=== PATIENT | male | born 1985 | race African-American/Black ===

== ENCOUNTER 2016-12-03 10:32 | Emergency (ER) | payer SELFPAY ==
[2016-12-03] MEDS ORDERED: ASPIRIN 81 MG TABLET, CHEWABLE PO ONE (10:47)
--- NOTE | 2016-12-03 10:47 | ER Document Report ---
ED Medical Screen (RME) - General Stated Complaint: COUGH,SHORTNESS OF BREATH Time seen by provider: 10:42 Mode of Arrival: Ambulatory Information source: Patient Notes: 31-year-old smoker male complaining of pain between his scapula and his back for 2 weeks. It radiates around into the left side of his chest especially when he coughs and moves, in which he is coughing a little bit more than normal. Not feel sick in any place else. Has had his try to massage it out. No fever. Occasionally gets short of breath, and occasionally coughs up blood. I have greeted and performed a rapid initial assessment of this patient. A comprehensive ED assessment, evaluation of the patient, analysis of test results , and completion of the medical decision making process will be contacted by additional ED providers. TRAVEL OUTSIDE OF THE [place] IN LAST 30 DAYS: No - Related Data Allergies/Adverse Reactions: No Known Allergies Allergy (Verified 12/03/16 10:42) Past Medical History Past Surgical History: Reports: Hx Oral Surgery - wisdom teeth, cyst removal - Immunizations Hx Diphtheria, Pertussis, Tetanus Vaccination: Yes
--- NOTE | 2016-12-03 11:01 | EKG REPORT ---
SEVERITY:- NORMAL ECG - SINUS RHYTHM : Confirmed by: Jack Smith MD 03-Dec-2016 11:00:31
[2016-12-03 11:26] LABS: ABSOLUTE EOSINOPHILS # (AUTO) 0.1 10^3/uL (0.0-0.6); ABSOLUTE LYMPHOCYTES (AUTO) 1.2 10^3/uL (0.5-4.7); ABSOLUTE MONOCYTES (AUTO) 0.7 10^3/uL (0.1-1.4); ABSOLUTE NEUT (AUTO) 4.6 10^3/uL (1.7-8.2); BASOPHILS % (AUTO) 0.5 % (0-2); EOSINOPHILS % (AUTO) 1.3 % (0-6); HEMATOCRIT 40.7 % (37.9-51.0); HEMOGLOBIN 14.3 g/dL (13.5-17.0); HGB HCT DIFFERENCE 2.2; LYMPHOCYTES % (AUTO) 18.2 % (13-45); MEAN CORPUSCULAR HEMOGLOBIN 31.3 pg (27.0-33.4); MEAN CORPUSCULAR HGB CONC 35.1 g/dL (32.0-36.0); MEAN CORPUSCULAR VOLUME 89 fl (80-97); MONOCYTES % (AUTO) 11.1 % (3-13); RED BLOOD COUNT 4.57 10^6/uL (4.35-5.55); RED CELL DISTRIBUTION WIDTH 13.3 % (11.5-14.0); SEGMENTED NEUTROPHILS % (AUTO) 68.9 % (42-78); WHITE BLOOD COUNT 6.7 10^3/uL (4.0-10.5)
[2016-12-03 11:46] LABS: ALANINE AMINOTRANSFERASE 20 U/L (21-72); ALBUMIN 4.6 g/dL (3.5-5.0); ALKALINE PHOSPHATASE 44 U/L (38-126); ANION GAP 11 (5-19); ASPARTATE AMINO TRANSFERASE 22 U/L (17-59); BILIRUBIN,TOTAL 0.7 mg/dL (0.2-1.3); BLOOD UREA NITROGEN 13 mg/dL (7-20); CALCIUM 9.6 mg/dL (8.4-10.2); CARBON DIOXIDE 25 mmol/L (22-30); CHLORIDE 107 mmol/L (98-107); CREATINE KINASE 338 U/L (55-170); CREATININE RESULT 1.04 mg/dL (0.52-1.25); GLUCOSE 78 mg/dL (75-110); POTASSIUM 4.3 mmol/L (3.6-5.0); SODIUM 142.9 mmol/L (137-145); TOTAL PROTEIN 7.1 g/dL (6.3-8.2)
[2016-12-03 11:58] LABS: TROPONIN I < 0.012 ng/mL
--- NOTE | 2016-12-03 12:05 | ER Document Report ---
ED Neck/Back Problem - General Chief Complaint: Back Pain Stated Complaint: COUGH,SHORTNESS OF BREATH Mode of Arrival: Ambulatory Notes: Patient is a 31-year-old male, past medical history current marijuana smoker, presents with several months of dry cough and pain in his left upper back when he coughs. He says the pain is achy and improves when his massages the area. He denies current chest pain, leg swelling, sputum, fevers, nausea, vomiting, headache, numbness, tingling, saddle anesthesia, change in bowel or bladder or difficulty walking. TRAVEL OUTSIDE OF THE [place] IN LAST 30 DAYS: No - Related Data Allergies/Adverse Reactions: No Known Allergies Allergy (Verified 12/03/16 10:42) Past Medical History - General Information source: Patient - Social History Smoking Status: Current Every Day Smoker Chew tobacco use (# tins/day): No Frequency of alcohol use: None Drug Abuse: Marijuana Family History: None Patient has suicidal ideation: No Patient has homicidal ideation: No Renal/ Medical History: Denies: Hx Peritoneal Dialysis Past Surgical History: Reports: Hx Oral Surgery - wisdom teeth, cyst removal - Immunizations Hx Diphtheria, Pertussis, Tetanus Vaccination: Yes Review of Systems - Review of Systems Notes: REVIEW OF SYSTEMS: CONSTITUTIONAL: -fevers, -chills EENT: -eye pain, -difficulty swallowing, -nasal congestion CARDIOVASCULAR: +chest pain, -syncope. RESPIRATORY: +cough, -SOB GASTROINTESTINAL: -abdominal pain, - nausea, -vomiting, -diarrhea GENITOURINARY: -dysuria, -hematuria MUSCULOSKELETAL: +back pain, -neck pain SKIN: -rash or skin lesions. HEMATOLOGIC: -easy bruising or bleeding. LYMPHATIC: -swollen, enlarged glands. NEUROLOGICAL: -altered mental status or loss of consciousness, -headache, - neurologic symptoms PSYCHIATRIC: -anxiety, -depression. ALL OTHER SYSTEMS REVIEWED AND NEGATIVE. Physical Exam - Vital signs Vitals: Temp Pulse BP Pulse Ox 99.0 F 73 111/51 L 96 12/03/16 10:40 12/03/16 10:40 12/03/16 10:40 12/03/16 10:40 - Notes Notes: PHYSICAL EXAMINATION: GENERAL: Well-appearing, well-nourished and in no acute distress. HEAD: Atraumatic, normocephalic. EYES: Pupils equal round and reactive to light, extraocular movements intact, sclera anicteric, conjunctiva are normal. ENT: nares patent, oropharynx clear without exudates. Moist mucous membranes. NECK: Normal range of motion, supple without lymphadenopathy LUNGS: Breath sounds clear to auscultation bilaterally and equal. No wheezes rales or rhonchi. HEART: Regular rate and rhythm without murmurs ABDOMEN: Soft, nontender, normoactive bowel sounds. No guarding, no rebound. No masses appreciated. EXTREMITIES: Tenderness over left thoracic paraspinal muscles, palpation reproduces pain. Normal range of motion, no pitting or edema. No cyanosis. NEUROLOGICAL: Cranial nerves grossly intact. Normal speech, normal gait. Normal sensory, motor, and reflex exams. PSYCH: Normal mood, normal affect. SKIN: Warm, Dry, normal turgor, no rashes or lesions noted. Course - Re-evaluation Re-evalutation: Labs, EKG and chest x-ray do not show any concerning abnormalities. He appears well. Symptoms very atypical for ACS, PE or aortic dissection at this time. Patient's back pain is reproducible and worse with coughing. Will discharge home with anti-inflammatories and lidocaine patches to help with pain. Also provided smoking cessation for 5 minutes. Will have him follow-up with his primary care physician. - Vital Signs Vital signs: Temp Pulse Resp BP Pulse Ox 99.0 F 73 111/51 L 96 12/03/16 10:40 12/03/16 10:40 12/03/16 10:40 12/03/16 10:40 - Laboratory Result Diagrams: 12/03/16 11:10 12/03/16 11:10 Laboratory results interpreted by me: 12/03/16 11:10 ALT 20 L Creatine Kinase 338 H Discharge - Discharge Clinical Impression: Back spasm Chest pain Qualifiers: Chest pain type: unspecified Qualified Code(s): R07.9 - Chest pain, unspecified Condition: Good Disposition: HOME, SELF-CARE Additional Instructions: Use Naprosyn with food and the lidocaine patches to help with your pain. BACK PAIN: Three out of every four people will have an episode of disabling back pain during their lifetime. Most commonly the pain is due to straining of the muscles and ligaments in the low back. Usual treatment includes: (1) Rest on a firm surface. Avoid lying on your stomach. (2) Ice pack the painful area. After a few days, gentle heat may be used intermittently to relax the area, or ice packs can be continued. (3) Medication may be needed -- muscle relaxers and antiinflammatory medicines are commonly used. (4) As the back improves, exercises are prescribed to strengthen the back and abdominal muscles. Your doctor will advise you on the proper care for your back at each stage in your recovery. You may be better in a few days -- or healing may take several weeks. If new symptoms of a "herniated disc" (radiation of pain, numbness, or tingling down the back of the leg or weakness in the leg) occur, you should be re-examined. Further testing may be necessary. ICE PACKS: Apply ice packs frequently against the painful area. Many different schedules are recommended, such as "20 minutes on, 20 minutes off" or "one hour ice, two hours rest." If you need to work, you may need to go longer between ice treatments. You should plan to have the area ice packed AT LEAST one fourth of the time. The ice should be applied over the wrap, tape, or splint, or over a layer of cloth -- not directly against the skin. Some ice bags have a built-in cloth and can be put directly on the skin. WARM PACKS: After approximately two days, apply gentle heat (such as a heating pad or hot water bottle) for about 20 to 30 minutes about every two hours -- at least four times daily. Warmth and elevation will help you make a more rapid recovery , and will ease the pain considerably. Do not use HOT heat, and never apply heat for longer than 30 minutes. The continuous heat can invisibly damage skin and muscles -- even when no burn is seen on the surface. Damaged muscles can make you MORE sore. FOLLOW-UP CARE: If you have been referred to a physician for follow-up care, call the physician s office for an appointment as you were instructed or within the next two days. If you experience worsening or a significant change in your symptoms, notify the physician immediately or return to the Emergency Department at any time for re-evaluation. CHEST PAIN OF UNCLEAR CAUSE: The exact cause of your chest pain isn't clear. Fortunately, there is no evidence of a dangerous medical condition. Further testing may be required to find the source of the pain. Most often, we find that this pain is coming from the chest wall -- the muscles or rib joints in the chest. But chest pain can come from the lung and lung lining, the esophagus, the heart valves or heart lining, and even the stomach or gallbladder. Rest. Eat lightly until the pain is gone. We may prescribe medicine for pain and inflammation. You should call the physician immediately if the pain radiates to the shoulder, jaw or arms; if you start to run a fever or develop a cough; or if you develop shortness of breath, or other new or alarming symptoms. NORMAL EXAM AND WORKUP: At this time, your examination and workup show no significant abnormality. No significant abnormal physical findings were noted. All laboratory, EKG, and imaging (x-ray, CT scans, ultrasound) studies that were ordered show no significant abnormality. Although your examination and all studies that were ordered showed no significant abnormal finding, there are no examinations and no studies that are 100% accurate. There is always the possibility that some abnormality could exist and not be detected with physical examination or within the limits and capabilities of laboratory and other studies. You should return or follow up as you were instructed on your visit today for further evaluation if your symptoms do not resolve. CHEST WALL PAIN: Your chest pain may be coming from the chest wall. This is often caused by straining the muscles or joints in the chest during physical activity, direct trauma, coughing, or vigorous vomiting. Persons with arthritis are especially prone to this type of pain, due to inflammation of the cartilage joints near the breast bone. Occasionally, no cause can be found. Rest from strenuous physical activity. This kind of chest pain is usually made worse by movement of the chest. Depending on the symptoms, we may prescribe medicine for pain, muscle relaxation, and antiinflammatory effects. If the pain is new, and seems to be due to muscle strain, cold packs can help. Otherwise, apply gentle warmth to the painful area for 15 minutes every hour or two. You should call contact the doctor immediately if things change. Further evaluation is needed if you develop a fever or cough, if the nature of the pain changes, or if you become short of breath. FOLLOW-UP CARE: If you have been referred to a physician for follow-up care, call the physician s office for an appointment as you were instructed or within the next two days. If you experience worsening or a significant change in your symptoms, notify the physician immediately or return to the Emergency Department at any time for re-evaluation. Forms: Smoking Cessation Education
[2016-12-03 12:25] VITALS: BP 125/65
== END 2016-12-03 12:22 | disposition home or self-care (01) ==
LOC: ER 10:32
DX: R07.9 Chest pain, unspecified (principal); M54.9 Dorsalgia, unspecified; R25.2 Cramp and spasm; R05 Cough; R06.02 Shortness of breath; F17.210 Nicotine dependence, cigarettes, uncomplicated; F12.90 Cannabis use, unspecified, uncomplicated; M54.6 Pain in thoracic spine
CPT/HCPCS: 36415; 71020; 80053; 82550; 82553; 84484; 85025; 93005; 93010; 99284

== ENCOUNTER 2017-07-22 18:51 | Emergency (ER) | payer MEDICAID ==
[2017-07-22] MEDS ORDERED: OXYCODONE-ACETAMINOPHEN 5-325 MG TABLET PO ONE (19:23)
--- NOTE | 2017-07-22 19:25 | ER Document Report ---
HPI - HPI Patient complains to provider of: Left knee injury Onset: Last week Onset/Duration: Persistent Quality of pain: Achy Pain Level: 3 Context: States he was walking, twisted and felt a pop behind his kneecap. Patient states since then he has had persistent left knee pain that is worse when he flexes his knee. Patient denies any traumatic injury. Associated Symptoms: Other - Knee joint pain Exacerbated by: Movement, Walking Relieved by: Denies Similar symptoms previously: No Recently seen / treated by doctor: No - ROS ROS below otherwise negative: Yes Systems Reviewed and Negative: Yes All other systems reviewed and negative - MUSCULOSKELETAL Musculoskeletal: REPORTS: Extremity pain - DERM Skin Color: Normal Skin Problems: None Past Medical History - General Information source: Patient - Social History Smoking Status: Current Every Day Smoker Frequency of alcohol use: None Drug Abuse: Marijuana Occupation: marketing Lives with: Spouse/Significant other Family History: None Patient has suicidal ideation: No Patient has homicidal ideation: No - Medical History Medical History: Negative Renal/ Medical History: Denies: Hx Peritoneal Dialysis Past Surgical History: Reports: Hx Oral Surgery - wisdom teeth, cyst removal - Immunizations Hx Diphtheria, Pertussis, Tetanus Vaccination: Yes Vertical Provider Document - CONSTITUTIONAL Agree With Documented VS: Yes Exam Limitations: No Limitations General Appearance: WD/WN, No Apparent Distress - INFECTION CONTROL TRAVEL OUTSIDE OF THE [place] IN LAST 30 DAYS: No - HEENT HEENT: Atraumatic, Normocephalic - NECK Neck: Normal Inspection - RESPIRATORY Respiratory: No Respiratory Distress O2 Sat by Pulse Oximetry: 99 - CARDIOVASCULAR Pulses: Normal: Posterior tibial, Dorsalis pedis - MUSCULOSKELETAL/EXTREMETIES Musculoskeletal/Extremeties: MAEW, Tender - Left knee joint tenderness to patellar area, no obvious effusion, no laxity with varus or valgus maneuvers. Tenderness increases with flexion.. negative: Eccymosis - NEURO Level of Consciousness: Awake, Alert, Appropriate Motor/Sensory: No Motor Deficit - DERM Integumentary: Warm, Dry, No Rash Course - Vital Signs Vital signs: Temp Pulse Resp BP Pulse Ox 99.1 F 80 20 115/60 99 07/22/17 19:01 07/22/17 19:01 07/22/17 19:01 07/22/17 19:01 07/22/17 19:01 - Diagnostic Test Radiology reviewed: Image reviewed, Reports reviewed Procedures - Immobilization Left Knee Pre-Proc Neuro Vasc Exam: Normal Immobilizer type: Knee immobilizer Performed by: RN Post-Proc Neuro Vasc Exam: Normal Alignment checked and good: Yes Discharge - Discharge Clinical Impression: Knee sprain Qualifiers: Encounter type: initial encounter Involved ligament of knee: unspecified ligament Laterality: left Qualified Code(s): S83.92XA - Sprain of unspecified site of left knee, initial encounter Condition: Stable Disposition: HOME, SELF-CARE Instructions: Use of Crutches ([facility]), Ice & Elevation ([facility]), Knee Immobilizing Splint ([facility]), Oral Narcotic Medication ([facility]), Sprained Knee ([facility]) Additional Instructions: Return immediately for any new or worsening symptoms Followup with your primary care provider, call tomorrow to make a followup appointment Follow-up with orthopedic doctor for further evaluation, call tomorrow for an appointment Prescriptions: Acetaminophen with Codeine [Acetaminophen-Cod #3 Tablet] 1 each PO Q6 PRN #12 tablet PRN Reason: Forms: Return to Work Referrals: [facility] ([place]) [Provider Group] - Follow up in 3-5 days
--- NOTE | 2017-07-22 20:26 | RADIOLOGY REPORT (SQ) ---
EXAM DESCRIPTION: KNEE LEFT 4 VIEW COMPLETED DATE/TIME: 07/22/2017 8:13 pm REASON FOR STUDY: pain under patella, felt pop COMPARISON: None. NUMBER OF VIEWS: Four views. TECHNIQUE: AP, lateral, and both oblique radiographic images acquired of the left knee. LIMITATIONS: None. FINDINGS: MINERALIZATION: Normal. BONES: No acute fracture or dislocation. No worrisome bone lesions. JOINT: No effusion. SOFT TISSUES: No soft tissue swelling. No radio-opaque foreign body. OTHER: No other significant finding. IMPRESSION: NO RADIOGRAPHIC EVIDENCE OF ACUTE INJURY. TECHNICAL DOCUMENTATION: JOB ID: [id number] [employer]- All Rights Reserved
[2017-07-22 20:47] VITALS: BP 118/64
== END 2017-07-22 20:46 | disposition home or self-care (01) ==
LOC: ER 18:51
DX: S83.92XA Sprain of unspecified site of left knee, initial encounter (principal); X50.0XXA Overexertion from strenuous movement or load, initial encounter; F17.200 Nicotine dependence, unspecified, uncomplicated
CPT/HCPCS: 99283; 73562; L1830

== ENCOUNTER 2017-12-09 10:06 | Emergency (ER) | payer MEDICAID, OTHER ==
[2017-12-09 10:12] VITALS: BP 115/62
[2017-12-09] MEDS ORDERED: IBUPROFEN 800 MG TABLET PO ONE (10:33)
--- NOTE | 2017-12-09 10:34 | ER Document Report ---
HPI - HPI Patient complains to provider of: wrist pain Onset: Last week Onset/Duration: Persistent Quality of pain: Achy Pain Level: 4 Context: Patient states that he was using a sledgehammer 1 week ago with his arm extended and felt a pop in his right wrist. Patient states since then he has had pain with movement of his right wrist. Associated Symptoms: Other - r wrist pain Exacerbated by: Movement Relieved by: Denies Similar symptoms previously: Yes Recently seen / treated by doctor: No - ROS ROS below otherwise negative: Yes Systems Reviewed and Negative: Yes All other systems reviewed and negative - CONSTITUTIONAL Constitutional: DENIES: Fever - NEURO Neurology: DENIES: Weakness - MUSCULOSKELETAL Musculoskeletal: REPORTS: Extremity pain. DENIES: Swelling - DERM Skin Color: Normal Skin Problems: None Past Medical History - General Information source: Patient - Social History Smoking Status: Never Smoker Frequency of alcohol use: None Drug Abuse: Marijuana Occupation: Demolition Family History: None Renal/ Medical History: Denies: Hx Peritoneal Dialysis Musculoskeltal Medical History: Reports Other - Carpal tunnel Past Surgical History: Reports: Hx Oral Surgery - wisdom teeth, cyst removal - Immunizations Hx Diphtheria, Pertussis, Tetanus Vaccination: Yes Vertical Provider Document - CONSTITUTIONAL Agree With Documented VS: Yes Exam Limitations: No Limitations General Appearance: WD/WN, No Apparent Distress - INFECTION CONTROL TRAVEL OUTSIDE OF THE [place] IN LAST 30 DAYS: No - HEENT HEENT: Atraumatic, Normocephalic - NECK Neck: Normal Inspection - RESPIRATORY Respiratory: No Respiratory Distress O2 Sat by Pulse Oximetry: 97 - CARDIOVASCULAR Pulses: Normal: Radial - MUSCULOSKELETAL/EXTREMETIES Musculoskeletal/Extremeties: MAEW, FROM, Tender - Right wrist tenderness over radial aspect of distal forearm, no edema, no deformity. Tenderness increases with ulnar deviation of right wrist, No Edema - NEURO Level of Consciousness: Awake, Alert, Appropriate Motor/Sensory: No Motor Deficit - DERM Integumentary: Warm, Dry, No Rash Course - Re-evaluation Re-evalutation: 12/09/17 Patient has his own cock-up splint with him. Splint in place with proper alignment, patient neurovascularly intact - Vital Signs Vital signs: Temp Pulse Resp BP Pulse Ox 98.6 F 68 14 115/62 97 12/09/17 10:11 12/09/17 10:11 12/09/17 10:11 12/09/17 10:11 12/09/17 10:11 - Diagnostic Test Radiology reviewed: Reports reviewed Discharge - Discharge Clinical Impression: Right wrist pain, Tendonitis Condition: Stable Disposition: HOME, SELF-CARE Instructions: Anti-Inflammatory Medication ([facility]), Oral Narcotic Medication ([facility] ), Tendonitis ([facility]) Additional Instructions: Return immediately for any new or worsening symptoms Followup with your primary care provider, call tomorrow to make a followup appointment Follow-up with orthopedic doctor for any continued pain or problems Limit repetitive activities using your right wrist Prescriptions: Hydrocodone/Acetaminophen [[place] 5-325 Tablet] 1 each PO Q4 PRN #12 tablet PRN Reason: Naproxen [Naprosyn 250 Nmg Tablet] 1 tab PO BID #14 tablet Forms: Return to Work Referrals: [facility] ([place]) [Provider Group] - Follow up tomorrow
--- NOTE | 2017-12-09 11:19 | RADIOLOGY REPORT (SQ) ---
EXAM DESCRIPTION: WRIST RIGHT 3 VIEWS COMPLETED DATE/TIME: 12/09/2017 11:08 am REASON FOR STUDY: r wrist/popping sensation COMPARISON: None. NUMBER OF VIEWS: Three views. TECHNIQUE: AP, lateral, and oblique radiographic images acquired of the right wrist. LIMITATIONS: None. FINDINGS: MINERALIZATION: Normal. BONES: No acute fracture or dislocation. No worrisome bone lesions. Normal alignment. SOFT TISSUES: No soft tissue swelling. No foreign body. OTHER: No other significant finding. IMPRESSION: NEGATIVE STUDY OF THE RIGHT WRIST. NO RADIOGRAPHIC EVIDENCE OF ACUTE INJURY. TECHNICAL DOCUMENTATION: JOB ID: [id number] [employer]- All Rights Reserved
== END 2017-12-09 11:55 | disposition home or self-care (01) ==
LOC: ER 10:06
DX: M25.531 Pain in right wrist (principal); M77.9 Enthesopathy, unspecified; X58.XXXA Exposure to other specified factors, initial encounter; Y93.89 Activity, other specified; Y99.0 Civilian activity done for income or pay
CPT/HCPCS: 99283

== ENCOUNTER 2019-04-11 10:51 | Emergency (ER) | payer OTHER, MEDICAID ==
[2019-04-11] MEDS ORDERED: NORMAL SALINE 1000 ML 1,000 ML IV ONE (11:12)
--- NOTE | 2019-04-11 11:13 | ER Document Report ---
ED Medical Screen (RME) - General Chief Complaint: Abdominal Cramping Stated Complaint: WEAKNESS Time Seen by Provider: 04/11/19 11:12 Mode of Arrival: Ambulatory Information source: Patient Notes: Patient presents with a concern about heat exhaustion. Patient states that he was working out in the heat yesterday and thought he had hydrated well enough although he was continually sweating. Patient states he started to have muscle cramps yesterday that have persisted today. Patient does feel lightheaded and occasionally see spots. Patient reports nausea but denies any vomiting. Patien t hypotensive in triage I have greeted and performed a rapid initial assessment of this patient. A comprehensive ED assessment and evaluation of the patient, analysis of test results and completion of the medical decision making process will be conducted by additional ED providers. TRAVEL OUTSIDE OF THE [place] IN LAST 30 DAYS: No - Related Data Allergies/Adverse Reactions: No Known Allergies Allergy (Verified 12/09/17 10:07) Past Medical History Renal/ Medical History: Denies: Hx Peritoneal Dialysis Past Surgical History: Reports: Hx Oral Surgery - wisdom teeth, cyst removal - Immunizations Hx Diphtheria, Pertussis, Tetanus Vaccination: Yes Physical Exam - Vital signs Vitals: Temp Pulse Resp BP Pulse Ox 98 F 64 18 81/55 L 96 04/11/19 10:56 04/11/19 10:56 04/11/19 10:56 04/11/19 10:56 04/11/19 10:56 - Cardiovascular Rhythm: Regular Heart sounds: S1 appreciated, S2 appreciated Course - Vital Signs Vital signs: Temp Pulse Resp BP Pulse Ox 98 F 64 18 81/55 L 96 04/11/19 10:56 04/11/19 10:56 04/11/19 10:56 04/11/19 10:56 04/11/19 10:56
[2019-04-11] MEDS ORDERED: RINGERS SOLUTION,LACTATED 1,000 ML IV ONE (12:05)
--- NOTE | 2019-04-11 12:10 | ER Document Report ---
ED General - General Chief Complaint: Abdominal Cramping Stated Complaint: WEAKNESS Time Seen by Provider: 04/11/19 11:12 Mode of Arrival: Ambulatory Notes: 33-year-old male presents with muscle cramping mostly his thighs and behind his thighs intermittent for the last 24 hours. Associated with some dehydration symptoms like fatigue and dizziness. He was out working in the sun yesterday says that his whole body "locked up on him." He got slightly better last night with Pedialyte and bananas could but continues to have some symptoms. Positive decreased urine output. Denies fever. Marijuana user but no other drugs or alcohol. Hypotensive at triage. TRAVEL OUTSIDE OF THE [place] IN LAST 30 DAYS: No - Related Data Allergies/Adverse Reactions: No Known Allergies Allergy (Verified 12/09/17 10:07) Past Medical History - General Information source: Patient - Social History Smoking Status: Never Smoker Drug Abuse: Marijuana Family History: None Renal/ Medical History: Denies: Hx Peritoneal Dialysis Past Surgical History: Reports: Hx Oral Surgery - wisdom teeth, cyst removal - Immunizations Hx Diphtheria, Pertussis, Tetanus Vaccination: Yes Review of Systems - Review of Systems Notes: REVIEW OF SYSTEMS GEN: Fatigue ENT: Denies sore throat, nasal discharge, ear pain EYES: Denies blurry vision, eye pain, discharge CV: Denies chest pain, palpitations, edema RESP: Denies cough, shortness of breath, wheezing GI: Denies abdominal pain, nausea, vomiting, diarrhea MSK: Muscle cramps SKIN: Denies rash, skin lesions LYMPH: Denies swollen glands/lymph nodes NEURO: Denies headache, focal weakness or numbness, dizziness PSYCH: Denies depression, suicidal or homicidal ideation PHYSICAL EXAMINATION General: No acute distress, well-nourished Head: Atraumatic, normocephalic ENT: Mouth normal, oropharynx moist, no exudates or tonsillar enlargement Eyes: Conjunctiva normal, pupils equal, lids normal Neck: No JVD, supple, no guarding CVS: Normal rate, regular rhythm, no murmurs Resp: No resp distress, equal and normal breath sounds bilaterally GI: Nondistended, soft, no tenderness to palpation, no rebound or guarding Ext: No deformities, no edema, normal range of motion in upper and lower ext. Compartments all soft with no muscle tenderness apparent. Back: No CVA or midline TTP Skin: No rash, warm Lymphatic: No lymphadeopathy noted Neuro: Awake, alert. Face symmetric. GCS 15. Physical Exam - Vital signs Vitals: Temp Pulse Resp BP Pulse Ox 98 F 64 18 81/55 L 96 04/11/19 10:56 04/11/19 10:56 04/11/19 10:56 04/11/19 10:56 04/11/19 10:56 Course - Re-evaluation Re-evalutation: 04/11/19 12:09 Patient presents with clinical dehydration plus or minus Avtar abnormalities. Will check for red myolysis although clinically not present. No evidence of compartment syndrome, no ongoing vomiting. Patient actually ate [employer] prior to coming to the emergency department. Nonetheless he is dehydrated and hypotensive. He was given a liter of normal saline which caused his pressure to increase from the 80s to the 110 range. Will order second liter empirically and wait for labs. - Vital Signs Vital signs: Temp Pulse Resp BP Pulse Ox 98 F 64 18 81/55 L 100 04/11/19 10:56 04/11/19 10:56 04/11/19 10:56 04/11/19 10:56 04/11/19 12:10 - Laboratory Result Diagrams: 04/11/19 11:54 04/11/19 11:54 Laboratory results interpreted by me: 04/11/19 11:54 BUN 31 H Creatinine 2.18 H Est GFR ( Amer) 42 L Est GFR (Non-Af Amer) 35 L Magnesium 2.5 H Creatine Kinase 1063 H Total Protein 8.6 H Albumin 5.3 H Critical Care Note - Critical Care Note Total time excluding time spent on procedures (mins): 31 Comments: The above patient is critically ill. Not including procedures, but including direct re-evaluations, speaking with patient and/or consultants, interpreting results, and documenting, I spent the total amount of minute listed listed above on critical care time Discharge - Discharge Clinical Impression: Dehydration, Acute kidney injury Condition: Good Disposition: HOME, SELF-CARE Additional Instructions: Please drink plenty of fluids any normal diet. Please avoid heat. If your urine output decreases or you feel generally unwell please return here for a recheck of your kidney function. It was slightly declined given your de hydration, we were a week we are able to give you fluids and you able to take oral hydration see her discharge home. Referrals: [facility] [Outside] - Follow up in 1 week
[2019-04-11 12:15] LABS: ABSOLUTE BASOPHILS # (AUTO) 0.1 10^3/uL (0.0-0.2); ABSOLUTE EOSINOPHILS # (AUTO) 0.1 10^3/uL (0.0-0.6); ABSOLUTE LYMPHOCYTES (AUTO) 2.6 10^3/uL (0.5-4.7); ABSOLUTE MONOCYTES (AUTO) 1.1 10^3/uL (0.1-1.4); ABSOLUTE NEUT (AUTO) 5.3 10^3/uL (1.7-8.2); BASOPHILS % (AUTO) 0.7 % (0-2); EOSINOPHILS % (AUTO) 1.3 % (0-6); HEMATOCRIT 46.8 % (37.9-51.0); HEMOGLOBIN 16.3 g/dL (13.5-17.0); LYMPHOCYTES % (AUTO) 28.1 % (13-45); MEAN CORPUSCULAR HEMOGLOBIN 31.2 pg (27.0-33.4); MEAN CORPUSCULAR HGB CONC 34.8 g/dL (32.0-36.0); MEAN CORPUSCULAR VOLUME 89 fl (80-97); MONOCYTES % (AUTO) 11.7 % (3-13); PLATELET COUNT 202 10^3/uL (150-450); RED BLOOD COUNT 5.23 10^6/uL (4.35-5.55); RED CELL DISTRIBUTION WIDTH 13.8 % (11.5-14.0); SEGMENTED NEUTROPHILS % (AUTO) 58.2 % (42-78); TOTAL CELLS COUNTED % (AUTO) 100 %; WHITE BLOOD COUNT 9.2 10^3/uL (4.0-10.5)
[2019-04-11 12:30] LABS: ALANINE AMINOTRANSFERASE 34 U/L (21-72); ALBUMIN 5.3 g/dL (3.5-5.0); ALKALINE PHOSPHATASE 45 U/L (38-126); ANION GAP 13 (5-19); ASPARTATE AMINO TRANSFERASE 44 U/L (17-59); BILIRUBIN,DIRECT 0.3 mg/dL (0.0-0.4); BILIRUBIN,TOTAL 0.7 mg/dL (0.2-1.3); BLOOD UREA NITROGEN 31 mg/dL (7-20); CALCIUM 10.1 mg/dL (8.4-10.2); CARBON DIOXIDE 25 mmol/L (22-30); CHLORIDE 99 mmol/L (98-107); CREATINE KINASE 1063 U/L (55-170); GLUCOSE 89 mg/dL (75-110); POTASSIUM 4.6 mmol/L (3.6-5.0); SODIUM 137.2 mmol/L (137-145); TOTAL PROTEIN 8.6 g/dL (6.3-8.2)
[2019-04-11 14:21] VITALS: BP 116/77
== END 2019-04-11 14:28 | disposition home or self-care (01) ==
LOC: ER 10:51
DX: E86.0 Dehydration (principal); N17.9 Acute kidney failure, unspecified; M62.82 Rhabdomyolysis; I95.9 Hypotension, unspecified; R42 Dizziness and giddiness; R53.83 Other fatigue; F12.10 Cannabis abuse, uncomplicated
CPT/HCPCS: 99285; 96360; 36415; 82550; 83735; 85025; 80053; J7030; J7120

== ENCOUNTER 2019-09-05 16:23 | Emergency (ER) | payer MEDICAID ==
[2019-09-05 16:28] VITALS: BP 122/66
[2019-09-05] MEDS ORDERED: DEXAMETHASONE SOD PHOS INJ 10 MG/1 ML VIAL IM ONE (17:48)
[2019-09-05] MEDS ORDERED: KETOROLAC TROMETHAMINE INJ/PF 30 MG/1 ML SDV IM ONE (17:48)
[2019-09-05] MEDS ORDERED: ACETAMINOPHEN 325 MG TABLET PO ONE (17:49)
--- NOTE | 2019-09-05 17:56 | ER Document Report ---
HPI - HPI Time Seen by Provider: 09/05/19 17:27 Pain Level: 5 Context: Healthy 34-year-old male presents the emergency department with chief complaint of headache and left-sided neck pain. Patient states is been going on for about a week but got worse last 2 days. Patient states that it is worse with stress. Patient says that he can "crack" his neck and it will temporarily relieve the pain. Patient says he does not try to take any for. Patient denies any acute confusion, facial droop, limb weakness, vision changes, acute shortness of breath or chest pain, nausea or vomiting, no other complaints. She is concerned because he recently had a friend of an aneurysm couple months ago - NEURO Neurology: REPORTS: Headache Past Medical History - Social History Smoking Status: Current Some Day Smoker Frequency of alcohol use: None Drug Abuse: Marijuana Family History: None Patient has suicidal ideation: No Patient has homicidal ideation: No Renal/ Medical History: Denies: Hx Peritoneal Dialysis Past Surgical History: Reports: Hx Oral Surgery - wisdom teeth, cyst removal - Immunizations Hx Diphtheria, Pertussis, Tetanus Vaccination: Yes Vertical Provider Document - CONSTITUTIONAL Notes: PHYSICAL EXAMINATION: Reviewed vital signs and charting by RN GENERAL: Alert, interacts well. No acute distress. HEAD: Normocephalic, atraumatic. EYES: Pupils equal and round. Extraocular movements intact. ENT: Oral mucosa moist, tongue midline. NECK: Full range of motion. Trachea midline. LUNGS: Clear to auscultation bilaterally, no wheezes, rales, or rhonchi. No respiratory distress. HEART: Regular rate and rhythm. No murmur ABDOMEN: soft, non-tender. No distention. Bowel sounds present EXTREMITIES: Moves all 4 extremities spontaneously. No edema, No cyanosis. 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 SKIN: Warm, dry, normal turgor. No rashes or lesions noted. - INFECTION CONTROL TRAVEL OUTSIDE OF THE [place] IN LAST 30 DAYS: No Course - Re-evaluation Re-evalutation: 09/05/19 17:55 Well-appearing no acute distress. Based on normal neurologic testing and patient's history I have very low suspicion for a concerning etiology like subarachnoid hemorrhage or any other intracranial pathology, low concern for CVA, low concern for meningitis as patient's neck is supple and he has good range of motion, and I suspect it is a cervical muscle strain. Discussed findings with patient, will medicate him, he has good follow-up, and is stable for discharge. - Vital Signs Vital signs: Temp Pulse Resp BP Pulse Ox 98.3 F 72 18 122/66 100 09/05/19 16:28 09/05/19 16:28 09/05/19 16:28 09/05/19 16:28 09/05/19 16:28 Discharge - Discharge Clinical Impression: Cervical muscle strain Qualifiers: Encounter type: initial encounter Qualified Code(s): S16.1XXA - Strain of muscle, fascia and tendon at neck level, initial encounter Condition: Good Disposition: HOME, SELF-CARE Additional Instructions: You were seen in the emergency department this afternoon for a cervical neck strain. Based on our discussion, your physical exam, and your history I am very reassured that it the pain in your head is originating from your neck and it is muscular in nature. Like I said I cannot tell you 100% that there is not an aneurysm in your brain, but because you do not have a family history and you have a completely normal neurologic exam I am very reassured and I do not feel would be appropriate to do a CT scan of your head. You have received a steroid shot and another shot called Toradol here in the emergency department, you have been given some Tylenol, and I gave you a prescription for Flexeril which you can get filled at the pharmacy. Also, get a heating pad with a run out and towel seeking apply moist heat to the area and do gentle stretching. Please follow-up with Dr. Leiva next week if your symptoms do not improve over the weekend. Please return to the emergency department if you develop those acute strokelike symptoms that you are describing to me to include one-sided weakness, slurred speech, facial droop, vision loss, acute confusion, or you have any other concerning symptoms. Prescriptions: Cyclobenzaprine HCl [Flexeril 5 mg Tablet] 1 - 2 tab PO TID PRN #15 tablet PRN Reason: Referrals: YAKOV LEIVA DO [Primary Care Provider] - Follow up as needed
== END 2019-09-05 18:20 | disposition home or self-care (01) ==
LOC: ER 16:23
DX: S16.1XXA Strain of muscle, fascia and tendon at neck level, initial encounter (principal); X58.XXXA Exposure to other specified factors, initial encounter; R51 Headache; M54.2 Cervicalgia; F17.200 Nicotine dependence, unspecified, uncomplicated; F12.10 Cannabis abuse, uncomplicated
CPT/HCPCS: J3490; J1885; J1100; 96372; 99283

== ENCOUNTER 2019-09-30 08:31 | Day surgery (SDC) | payer MEDICAID ==
[~2019-09-30 08:31] MED LIST: CEFAZOLIN SODIUM 2 GM in DEXTROSE 5%-WATER 100 ML IV PRN; FENTANYL CITRATE INJ/PF 100 MCG/2 ML AMPUL ONE; MIDAZOLAM 2 MG/2 ML INJ ONE; ONDANSETRON HCL INJ/PF 4 MG/2 ML SDV ONE; PROPOFOL INJ 200 MG/20 ML VIAL IV ONE
[2019-09-30 09:55] LABS: HEMATOCRIT 44.4 % (37.9-51.0); HEMOGLOBIN 15.4 g/dL (13.5-17.0); MEAN CORPUSCULAR HEMOGLOBIN 32.1 pg (27.0-33.4); MEAN CORPUSCULAR HGB CONC 34.7 g/dL (32.0-36.0); MEAN CORPUSCULAR VOLUME 92 fl (80-97); PLATELET COUNT 162 10^3/uL (150-450); RED CELL DISTRIBUTION WIDTH 13.8 % (11.5-14.0); WHITE BLOOD COUNT 6.4 10^3/uL (4.0-10.5)
[2019-09-30 09:59] LABS: ANION GAP 12 (5-19); BLOOD UREA NITROGEN 10 mg/dL (7-20); CARBON DIOXIDE 25 mmol/L (22-30); CHLORIDE 106 mmol/L (98-107); GLUCOSE 90 mg/dL (75-110); POTASSIUM 4.2 mmol/L (3.6-5.0)
[2019-09-30] MEDS ORDERED: PROPOFOL INJ 200 MG/20 ML VIAL IV ONE (12:27)
[2019-09-30] MEDS ORDERED: LIDOCAINE 1% INJ-PF (10 MG/ML) 30 ML SDV ONE (12:39)
[2019-09-30] MEDS ORDERED: MORPHINE SULFATE 10 MG/ML INJ IV PRN ×2 (12:51→13:18)
[2019-09-30] MEDS ORDERED: DIPHENHYDRAMINE HCL 50 MG/ML VIAL IV PRN (12:51)
[2019-09-30] MEDS ORDERED: PROMETHAZINE HCL INJ 25 MG/1 ML VIAL IV PRN ×2 (12:51)
[2019-09-30] MEDS ORDERED: MEPERIDINE HCL/PF INJ 25 MG/1 ML DISP.SYRIN IV PRN (12:51)
[2019-09-30] MEDS ORDERED: ONDANSETRON HCL INJ/PF 4 MG/2 ML SDV IV PRN (12:51)
[2019-09-30] MEDS ORDERED: FENTANYL CITRATE INJ/PF 100 MCG/2 ML AMPUL IV PRN ×3 (12:51)
--- NOTE | 2019-09-30 13:16 | Operative Report ---
Operative Report DATE OF SURGERY: 09/30/19 PREOPERATIVE DIAGNOSIS: Right carpal tunnel syndrome POSTOPERATIVE DIAGNOSIS: Same OPERATION: Right endoscopic carpal tunnel release SURGEON: ANIKA QUINTANA ANESTHESIA: GA COMPLICATIONS: None ESTIMATED BLOOD LOSS: Minimal PROCEDURE: Indication for above procedure: 34-year-old male with numbness and tingling in his right wrist. Patient had clinical evidence of carpal tunnel syndrome. Attempted conservative including injections and bracing without resolution of patient's symptoms. At that point decision was made to proceed with operative intervention. Risk and benefits were explained patient verbalized understanding consented for surgical procedure. Procedure In Detail: Patient was seen and evaluated in the preoperative holding area. The LEFT upper extremity was initialized and marked. Patient received Ancef IV for bacterial prophylaxis. Patient was taken back to the operative room where transferred operative table. Patient was then placed under MAC anesthesia. Once adequately anesthetized, a nonsterile tourniquet was placed on the upper extremity. A surgical team debriefing was performed ensuring all instrumentation was available, the surgical procedure was discussed with possible concerns reviewed. Skin was prepped with alcohol and 10cc of 1% lidocaine without epinephrine was injected locally and w/in carpal canal. The upper extremity was prepped with chlorhexidine and alcohol and draped in a sterile fashion. A timeout was done identifying correct patient, procedure and extremity everyone in attendance agree with this and verbalized no concerns.The extremity was then exsanguinated the tourniquet was inflated to 250 mmHg. A transverse skin incision was made just proximal to the wrist flexion crease ulnar to the palmaris longus. Blunt dissection was performed down to the palmaris longus tendon which was retracted radially. Deep to the palmaris longus tendon was the volar carpal ligament this was incised identifying the median nerve deep. With the use of a [place] elevator any soft tissue/synovium was freed from the undersurface of the transverse carpal ligament. The hook of hamate was identified ulnarly. The ConMed cannulas were then introduced beginning with #1 progressing to a #3 gently dilating the carpal canal. I then introduced the scope within the cannula and identified transverse carpal ligament ensuring the median nerve was not visualized within the cannula. I triangulated distally with a 25-gauge needle identifying the distal aspect of the transverse carpal ligament, to ensure protection of the superficial palmar arch. The arthroscopic knife was used to incise the transverse carpal ligament under direct visualization with the arthroscopic camera. Any excess transverse fibers that remained after the first past were carefully released with a repeat pass. The median nerve was then directly visualized radially without disr uption. Once this was completed I placed the #3 dilator and assured I got complete release of the transverse carpal ligament without residual compression. The median nerve was directly visualized and free of any overlying compression. I then turned my attention to release of the volar antebrachial fascia proximally. Once again a [place] was used to open the wound and I proceeded with cannula #1 to #3. The arthroscope was introduced into the cannula and under direct visualization the volar antebrachial fascia was released. Once this was complete I copiusly irrigated the wound with normal saline. The skin incision was closed with 4-0 Monocryl subcutaneous and a running subcuticular 4-0 Monocryl. This was reinforced with Dermabond and Steri-Strips. Sterile, 4 x 4's and a Placido bandage was placed loosely. Sponge counts, instrument counts and needle counts were correct. The was no intraoperative complications patient tolerated the procedure well and was stable to PACU.
[2019-09-30] MEDS ORDERED: HYDROCODONE/ACETAMINOPHEN 5-325 MG TABLET PO PRN (13:18)
--- NOTE | 2019-09-30 13:18 | Discharge Summary ---
Discharge Summary (SDC) - Discharge Final Diagnosis: Right carpal tunnel syndrome Date of Surgery: 09/30/19 Discharge Date: 09/30/19 Condition: Good Treatment or Instructions: Schedule Follow Up w/ Dr. Topher Perez @ [facility] for Surgery to be seen in 10-14 days or as scheduled [place]: [place]: [place]: May remove dressing on postop day #3, keep incision covered and dry. Ice and elevate May begin finger range of motion attempting to make full fist. Stool softener of choice when on pain medication. USE OF [id number] IBUPROFEN: Ibuprofen (Advil, Nuprin, Medipren, Motrin IB) is a medication for fever and pain control. In addition, it has anti- inflammatory effects which may be beneficial, especially in the treatment of injuries. It's best to take ibuprofen with food. Persons with ulcer disease or allergy to aspirin should notify their physician of this before taking ibuprofen. Ibuprofen can be given every four to six hours, for a total of four doses daily. Age Pain or fever dose Antiinflammatory dose 6-8 yr 200 mg (1 tab) 200 mg (1 tab) 9-11 yr 200 mg (1 tab) 200-400 mg (1-2 tab) 11-14 yr 200-400 mg (1-2 tab) 400 mg (2 tab) 15-adult 400 mg (2 tab) 600 mg (3 tab) ORAL NARCOTIC MEDICATION: You have been given a prescription for pain control. This medication is a narcotic. It's best taken with food, as nausea can result if taken on an empty stomach. Don't operate machinery or drive within six hours of taking this medication. Do not combine this medicine with alcohol, or with any medication which can cause sedation (such as cold tablets or sleeping pills) unless you get permission from the physician. Narcotics tend to cause constipation. If possible, drink plenty of fluids and eat a diet high in fiber and fruits. Please be aware that prescription narcotics also have the potential for abuse. People become addicted to these medications because of the general sense of wellbeing that they induce. This feeling along with a significant reduction in tension, anxiety, and aggression provides a stimulating seductive quality to these drugs. Once your pain is under control, we encourage you to discard your unused narcotics. Prescriptions: Hydrocodone/Acetaminophen [[place] 5-325 mg Tablet] 1 tab PO Q6 PRN #15 tablet PRN Reason: Referrals: YAKOV HOFF DO [Primary Care Provider] - Discharge Diet: As Tolerated Respiratory Treatments at Home: Deep Breathing/Coughing, Incentive Spirometer Report the Following to Your Physician Immediately: Unusual Bleeding, Redness, Swelling, Warmth, Increased Soreness
[2019-09-30 17:03] VITALS: BP 132/81
[2019-10-07] MEDS ORDERED: CEFAZOLIN SODIUM 2 GM in DEXTROSE 5%-WATER 100 ML IV PRN (05:00)
== END 2019-09-30 15:00 | disposition home or self-care (01) ==
LOC: OROUT 08:31
PROVIDERS: ATTEND Orthopaedic Surgery
DX: G56.03 Carpal tunnel syndrome, bilateral upper limbs (principal); F17.210 Nicotine dependence, cigarettes, uncomplicated
CPT/HCPCS: 36415; 85027; 80048; 01810; 29848; J2250; J0690; J3010; J3490; J2405; J7060; J2704; 1810